=== PATIENT | female | born 1985 | race Caucasian/White ===

== ENCOUNTER 2017-12-09 17:34 | Emergency (ER) | payer MEDICAID ==
[~2017-12-09] VITALS: Ht 165.1 cm; Wt 69.8 kg
[~2017-12-09 17:34] MED LIST: MAGN1TAB; OMEP-110 PO
[2017-12-09 17:46] VITALS: BP 122/84
[2017-12-09] MEDS ORDERED: AZITHROMYCIN 500 MG TABLET PO ONE (18:30)
[2017-12-09] MEDS ORDERED: PLEASE ENTER ALLERGIES MC SCH (18:30)
[2017-12-09] MEDS ORDERED: CEFTRIAXONE 250 MG IM ONE (18:30)
[2017-12-09 19:10] LABS: ALBUMIN 3.7 g/dL (3.4-5.0); BASOPHILS # (AUTO) 0.05 x10^3/uL (0-0.1); BASOPHILS % (AUTO) 1 % (0-1); CALCIUM 8.7 mg/dL (8.5-10.1); CREATININE 0.85 mg/dL (0.55-1.02); EOSINOPHILS % (AUTO) 1 % (1-7); LYMPHOCYTES # (AUTO) 2.45 x10^3/uL (1-3.4); LYMPHOCYTES % (AUTO) 26 % (22-44); MD NO; MEAN CORPUSCULAR HEMOGLOBIN 31.3 pg (27.0-34.8); MEAN CORPUSCULAR VOLUME 92.3 fL (80-100); MEAN PLATELET VOLUME 8.2 fL (7.4-10.4); MONOCYTES # (AUTO) 0.96 x10^3/uL (0.2-0.8); MONOCYTES % (AUTO) 10 % (2-9); NEUTROPHILS # (AUTO) 5.97 x10^3/uL (1.8-6.8); NEUTROPHILS % (AUTO) 63 % (42-75); PLATELET COUNT 235 x10^3/uL (130-400); RED BLOOD COUNT 4.76 x10^6/uL (3.82-5.3); RED CELL DISTRIBUTION WIDTH 12.8 % (9.6-15.2)
[2017-12-09 19:19] LABS: MICROSCOPIC AUTO
[2017-12-09 19:21] LABS: CULTURE INDICATED? YES
[2017-12-09 19:41] LABS: ANION GAP 10 mmol/L (5-15); CHLORIDE 106 mmol/L (98-107)
[2017-12-09] MEDS ORDERED: CEFTRIAXONE 250 MG ONE (19:46)
[2017-12-09] MEDS ORDERED: AZITHROMYCIN 250 MG TABLET ONE (19:46)
[2017-12-09 20:00] LABS: CLUE CELLS NONE SEEN (NONE SEEN)
[2017-12-09 20:01] LABS: WET PREP WBCS FEW (FEW)
== END 2017-12-09 21:07 | disposition home or self-care (01) ==
LOC: ED 20:29
DX: A64 Unspecified sexually transmitted disease (principal); K52.9 Noninfective gastroenteritis and colitis, unspecified
CPT/HCPCS: 36415; 76830; 80048; 81001; 82040; 84703; 85025; 87086; 87210; 87491; 87591; 87808; 99285

== ENCOUNTER 2018-10-01 20:57 | Emergency (ER) | payer MEDICAID ==
[~2018-10-01] VITALS: Ht 165.1 cm; Wt 69.6 kg
[2018-10-01 23:09] VITALS: BP 126/61
== END 2018-10-01 23:10 | disposition home or self-care (01) ==
LOC: ED 22:45
DX: R07.89 Other chest pain (principal); R53.83 Other fatigue; K21.9 Gastro-esophageal reflux disease without esophagitis
CPT/HCPCS: 36415; 71045; 80053; 84484; 84703; 85025; 93005; 99284

== ENCOUNTER 2019-02-16 20:15 | Emergency (ER) | payer MEDICAID ==
[~2019-02-16] VITALS: Ht 165.1 cm; Wt 73.8 kg
--- NOTE | 2019-02-16 20:37 | NUR ---
FIRST CONTACT WITH PT. PT C/O WHITEISH VAGINAL DISCHARGE FOR ONE WEEK, LOWER ABD PAIN SEVERAL DAYS. PT'S AOX4. RESPS EVEN AND UNLABORED. [id number]. BP/SPO2 MONITORS IN PLACE. CALL LIGHT WITHIN REACH.
--- NOTE | 2019-02-16 21:24 | NUR ---
pt amb to br and back to room with steady gait. ua sent.
[2019-02-16 21:42] LABS: HCG UR SG 1.023 (1.003-1.030); MICROSCOPIC NOT IND
[2019-02-16 21:44] LABS: CULTURE INDICATED? NO
--- NOTE | 2019-02-16 21:44 | NUR ---
PELVIC EXAM DONE AT BEDSIDE AT THIS TIME. PT TOLERATED WELL.
[2019-02-16 21:53] LABS: CLUE CELLS PRESENT (NONE SEEN)
[2019-02-16 21:55] LABS: WET PREP WBCS FEW (FEW)
[2019-02-16 22:29] VITALS: BP 104/68
--- NOTE | 2019-02-16 23:08 | NUR ---
Patient given discharge instructions and they have confirmed that they understand the instructions. Patient ambulatory with steady gait.
== END 2019-02-16 23:09 | disposition home or self-care (01) ==
LOC: ED 23:08
DX: N76.0 Acute vaginitis (principal); N89.8 Other specified noninflammatory disorders of vagina; K21.9 Gastro-esophageal reflux disease without esophagitis
CPT/HCPCS: 81003; 81025; 87210; 87491; 87591; 87808; 99283

== ENCOUNTER 2019-04-04 18:36 | Emergency (ER) | payer MEDICAID ==
[~2019-04-04] VITALS: Ht 165.1 cm; Wt 73.8 kg
[2019-04-04 19:55] VITALS: BP 111/71
[2019-04-04 20:02] LABS: BASOPHILS # (AUTO) 0.06 x10^3/uL (0-0.1); BASOPHILS % (AUTO) 1 % (0-1); EOSINOPHILS # (AUTO) 0.17 x10^3/uL (0-0.4); EOSINOPHILS % (AUTO) 2 % (1-7); LYMPHOCYTES # (AUTO) 3.09 x10^3/uL (1-3.4); LYMPHOCYTES % (AUTO) 39 % (22-44); MD NO; MEAN CORPUSCULAR HEMOGLOBIN 30.6 pg (27.0-34.8); MEAN CORPUSCULAR HGB CONC 34.2 g/dL (32.4-35.8); MEAN CORPUSCULAR VOLUME 89.4 fL (80-100); MONOCYTES # (AUTO) 0.75 x10^3/uL (0.2-0.8); MONOCYTES % (AUTO) 9 % (2-9); NEUTROPHILS % (AUTO) 49 % (42-75); PLATELET COUNT 222 x10^3/uL (130-400); RED CELL DISTRIBUTION WIDTH 12.9 % (9.6-15.2)
[2019-04-04 20:11] LABS: ANION GAP 6 mmol/L (5-15); CALCIUM 8.1 mg/dL (8.5-10.1); CHLORIDE 110 mmol/L (98-107); CREATININE 0.79 mg/dL (0.55-1.02)
== END 2019-04-04 20:30 | disposition home or self-care (01) ==
LOC: ED 20:24
DX: G62.9 Polyneuropathy, unspecified (principal); K21.9 Gastro-esophageal reflux disease without esophagitis; F17.200 Nicotine dependence, unspecified, uncomplicated
CPT/HCPCS: 36415; 80048; 85025; 93005; 99284

== ENCOUNTER 2020-01-06 08:38 | Emergency (ER) | payer MEDICAID ==
[~2020-01-06] VITALS: Ht 165.1 cm; Wt 74.4 kg
[2020-01-06] MEDS ORDERED: IBUPROFEN 600 MG TABLET ONE (10:02)
[2020-01-06] MEDS ORDERED: ACETAMINOPHEN 325 MG TABLET ONE (10:02)
[2020-01-06] MEDS: ACETAMINOPHEN 325 MG TABLET PO ONE ×2 (10:03→10:13)
[2020-01-06] MEDS: IBUPROFEN 600 MG TABLET PO ONE ×2 (10:03→10:13)
[2020-01-06 10:08] VITALS: BP 128/78
== END 2020-01-06 10:27 | disposition home or self-care (01) ==
LOC: ED 09:41
DX: J02.9 Acute pharyngitis, unspecified (principal); I10 Essential (primary) hypertension; K21.9 Gastro-esophageal reflux disease without esophagitis; Z90.49 Acquired absence of other specified parts of digestive tract
CPT/HCPCS: 87081; 87880; 99283